=== PATIENT | female | born 1970 ===

== ENCOUNTER 2016-11-07 17:49 | Observation (INO) | payer OTHER ==
[2016-11-07 18:07] VITALS: BP 115/65; PULSE 106; RESP 18; TEMP 101; O2SAT 99
[2016-11-07] MEDS ORDERED: Sodium Chloride 0.9% 1,000 ML IV STA (18:58)
[2016-11-07 19:23] LABS: BASO % 0.2 % (0.0-2.0); EOS % 0.1 % (0.0-4.0); HEMATOCRIT 38.5 % (34.0-47.0); LYMPH # 1.6 K/uL (1.0-4.3); LYMPH % 9.2 % (20.0-40.0); MEAN CORPUSCULAR HEMOGLOBIN 32.2 pg (27.0-31.0); MEAN CORPUSCULAR HGB CONC 34.3 g/dL (33.0-37.0); MEAN PLATELET VOLUME 7.8 fl (7.2-11.7); MONO # 0.9 K/uL (0.0-0.8); NEUT # 14.7 K/uL (1.8-7.0); NEUT % 85.5 % (50.0-75.0); PLATELET COUNT 286 K/uL (130-400); RED CELL DISTRIBUTION WIDTH 14.1 % (11.5-14.5); WHITE BLOOD COUNT 17.1 K/uL (4.8-10.8)
--- NOTE | 2016-11-07 19:25 | ED PDOC ---
HPI: Abdomen Time Seen by Provider: 11/07/16 18:18 Chief Complaint (Nursing): Abdominal Pain History Per: Patient (states that she has had chronic lower abdominal pain for one week. 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 She also says that she has lower back pain. ) History/Exam Limitations: no limitations Onset/Duration Of Symptoms: Days, Waxing/Waning, Gradual, Persistent Outside of [place] travel?: No Current Symptoms Are (Timing): Still Present Associated Symptoms: Fever, Nausea, Vomiting. denies: Diarrhea Past Medical History Reviewed: Historical Data, Nursing Documentation, Vital Signs Vital Signs: Last Vital Signs Temp 101 F H 11/07/16 18:01 Pulse 106 H 11/07/16 18:01 Resp 18 11/07/16 18:01 BP 115/65 11/07/16 18:01 Pulse Ox 99 11/07/16 22:09 - Medical History PMH: No Chronic Diseases - Family History Family History: States: Unknown Family Hx - Living Arrangements Living Arrangements: With Family - Social History Current smoker - smoking cessation education provided: Yes Alcohol: Occasional - Immunization History Hx Tetanus Toxoid Vaccination: No Hx Influenza Vaccination: No Hx Pneumococcal Vaccination: No - Home Medications Home Medications: Ambulatory Orders Medication Instructions Recorded Ciprofloxacin HCl [Cipro] 500 mg PO BID #14 tab 10/19/13 Phenazopyridine Hydrochlorid2 1 tab PO TID #15 tab 10/19/13 [Pyridium] Cephalexin [cephalexin] 500 mg PO BID #14 cap 08/17/16 - Allergies Allergies/Adverse Reactions: Allergies Allergy/AdvReac Type Severity Reaction Status Date / Time acetaminophen [From Percocet] Allergy DIZZINESS Verified 08/17/16 12:04 oxycodone HCl [From Percocet] Allergy DIZZINESS Verified 08/17/16 12:04 Review of Systems ROS Statement: Except As Marked, All Systems Reviewed And Found Negative Constitutional: Negative for: Fever Gastrointestinal: Positive for: Nausea, Vomiting, Abdominal Pain (lower ) Genitourinary Female: Positive for: Dysuria Physical Exam - Reviewed Nursing Documentation Reviewed: Yes Vital Signs Reviewed: Yes - Physical Exam Appears: Positive for: Well, Non-toxic, No Acute Distress Head Exam: Positive for: ATRAUMATIC, NORMAL INSPECTION, NORMOCEPHALIC Skin: Positive for: Normal Color, Warm, DRY Eye Exam: Positive for: EOMI, Normal appearance, PERRL ENT: Positive for: Normal ENT Inspection Neck: Positive for: Normal, Painless ROM Cardiovascular/Chest: Positive for: Regular Rate, Rhythm Respiratory: Positive for: CNT, Normal Breath Sounds Gastrointestinal/Abdominal: Positive for: Normal Exam, Bowel Sounds, Soft, Tenderness (lower abdomen right greater than left.) Back: Positive for: Normal Inspection Extremity: Positive for: Normal ROM Neurologic/Psych: Positive for: Alert, Oriented - Laboratory Results Result Diagrams: 11/07/16 19:15 11/07/16 19:15 - ECG O2 Sat by Pulse Oximetry: 99 Medical Decision Making Medical Decision Making: patient is feeling better. CT scan revealed small obstructive ureteral stone. 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 ED OBSERVATION Discharge: Yes Date of observation admission: 11/07/16 Time of observation admission: 20:08 - Observation admission statement Patient is being placed in observation because:: abd pain pending CT Disposition - Clinical Impression Clinical Impression: Nausea & vomiting, Ureteral stone - Patient ED Disposition Is Patient to be Admitted: No Doctor Will See Patient In The: Office Counseled Patient/Family Regarding: Diagnosis, Need For Followup, Rx Given - Disposition Disposition: Routine/Home Disposition Time: 23:24 Condition: IMPROVED - POA Present On Arrival: None
[2016-11-07] MEDS ORDERED: Iohexol 240 (50 ml) PO ONE (19:32)
[2016-11-07 19:40] LABS: ALB/GLOB RATIO 1.2 (1.0-2.1); ALKALINE PHOSPHATASE 106 U/L (38-126); ALT/SGPT 21 U/L (9-52); AST/SGOT 26 U/L (14-36); BILIRUBIN,TOTAL 0.8 mg/dl (0.2-1.3); BLOOD UREA NITROGEN 8 mg/dl (7-17); CALCIUM 9.1 mg/dL (8.4-10.2); CARBON DIOXIDE 26 mmol/L (22-30); CHLORIDE 100 mmol/L (98-107); GFR AFRICAN-AMERICAN > 60; GLUCOSE,RANDOM 137 mg/dL (65-105); POTASSIUM 3.4 MMOL/L (3.6-5.0); SODIUM 138 mmol/l (132-148); TOTAL PROTEIN 8.1 G/DL (6.3-8.2)
[2016-11-07] MEDS ORDERED: Iohexol 240 (50 ml) ONE (20:10)
[2016-11-07 20:47] LABS: NEUTROPHIL 85 % (42-75); TOTAL CELLS COUNTED 100
[2016-11-07] MEDS ORDERED: Iohexol 300 100 ML IJ ONE (22:20)
[2016-11-07] MEDS ORDERED: Sodium Chloride 0.9% 50 ML IV ONE (22:21)
--- NOTE | 2016-11-07 23:10 | CT ---
EXAM: CT Abdomen and Pelvis With Intravenous Contrast CLINICAL HISTORY: 46 years old, female; Pain; Abdominal pain; Localized; Lower; Prior surgery; Surgery date: 6+ months; Surgery type: Urethral cyst about 7 yrs ago; Additional info: Lower abd pain with fever; On antibiotics for 7d. Sent phy. Doc. With request TECHNIQUE: Axial computed tomography images of the abdomen and pelvis with intravenous contrast. This CT exam was performed using one or more of the following dose reduction techniques: automated exposure control, adjustment of the mA and/or kV according to patient size, and/or use of iterative reconstruction technique. Coronal and sagittal reformatted images were created and reviewed. CONTRAST: 90 mL of [id number] administered intravenously. COMPARISON: CT - ABD PELVIS W/O PO OR IV CONT 08/17/2016 3:09:12 PM FINDINGS: Lower thorax: There is minimal bibasilar atelectasis. ABDOMEN: Liver: There are no focal liver lesions present. Gallbladder and bile ducts: The gallbladder is contracted but otherwise normal. No calcified stones. No ductal dilation. Pancreas: The pancreas is normal. No ductal dilation. Spleen: The spleen is normal. Adrenals: The adrenal glands are normal. Kidneys and ureters: There is a 2-3 mm calcification near the right UVJ visible on series 3, image 145. This was not present on a prior study dated 08/17/2016 and is therefore believed likely to represent a small urinary calculus either at the right UVJ or at the inferior bladder. This does not appear to be causing significant hydronephrosis or hydroureter currently. Please correlate clinically and if indicated followup can be obtained. Both kidneys demonstrate multiple small nonobstructing calculi. There is also a large staghorn type calculus at the left midpole measuring 2.0 CM in greatest dimension this. 1.6 CM left midpole renal cyst. 1.8 CM right upper pole renal cyst. There is no evidence of hydronephrosis. Stomach and bowel: Stomach is decompressed. There is no evidence of intestinal obstruction. No mucosal thickening. Appendix: A normal appendix is identified. PELVIS: Bladder: Bladder is decompressed. Reproductive: The uterus is normal. 2.4 CM left ovary cyst. ABDOMEN and PELVIS: Intraperitoneal space: There is no evidence of free intraperitoneal fluid. There is no free intraperitoneal air. Bones/joints: No acute fracture. No dislocation. Soft tissues: Unremarkable. Vasculature: The aorta demonstrates moderate atherosclerotic calcification. No abdominal aortic aneurysm. Lymph nodes: There is no evidence of lymphadenopathy. IMPRESSION: 1. There is a 2-3 mm calcification near the right UVJ visible on series 3, image 145. This was not present on a prior study dated 08/17/2016 and is therefore believed likely to represent a small urinary calculus either at the right UVJ or at the inferior bladder. This does not appear to be causing significant hydronephrosis or hydroureter currently. Please correlate clinically and if indicated followup can be obtained.
== END 2016-11-07 23:58 | disposition home or self-care (01) ==
LOC: H.ER 17:49 → H.EROBSV 20:00
PROVIDERS: ADMIT Emergency Medicine; ATTEND Emergency Medicine
DX: N20.1 Calculus of ureter (principal); F17.200 Nicotine dependence, unspecified, uncomplicated